=== PATIENT | male | born 1995 | race Caucasian/White ===

== ENCOUNTER 2016-12-29 11:20 | Emergency (ER) | payer OTHER ==
[~2016-12-29] VITALS: Ht 180.3 cm; Wt 95.3 kg
--- NOTE | 2016-12-29 13:37 | RADIOLOGY REPORT ---
EXAMINATION: XR HAND, LEFT CLINICAL INFORMATION: Laceration fourth finger COMPARISON: None TECHNIQUE: AP, lateral, and oblique views of the left hand. FINDINGS: There is a nondisplaced tuft fracture of the left fourth distal phalanx. Soft tissue swelling noted. No radiopaque foreign body is seen. There is a soft tissue laceration identified. IMPRESSION: Nondisplaced comminuted distal tuft fracture left fourth finger.
[2016-12-29] MEDS ORDERED: AUGMENTIN 875-1 EACH PO (14:13)
--- NOTE | 2016-12-29 14:13 | ED HAND/WRIST INJURY COMPLAINT ---
History of Present Illness General Chief Complaint: Hand or Wrist Injury Stated Complaint: RT FINGER INJURY Source: patient Exam Limitations: no limitations Vital Signs & Intake/Output Vital Signs & Intake/Output Vital Signs Date Time Temp Pulse Resp B/P B/P Pulse O2 O2 Flow FiO2 Mean Ox Delivery Rate 12/29 1427 97.9 60 18 122/78 98 Room Air 12/29 1317 97.4 66 20 138/80 99 12/29 1221 Room Air 12/29 1132 98.0 84 18 142/87 100 Room Air Allergies Coded Allergies: NO KNOWN ALLERGIES (11/29/11) Reconcile Medications Amoxicillin/Potassium Clav (Augmentin 875-125 Tablet) 875 MG-125 MG TABLET 1 TAB PO BID ppx Triage Note: PT TO ED FOR LAC TO RING FINGER ON L HAND. LAST TETANUS SHOT UNKNOWN. BLEEDING CONTROLLED IN TRIAGE. Triage Nurses Notes Reviewed? yes HPI: 21M NO MEDICAL HISTORY, WHILE AT WORK DROPPED A CINDER BLOCK ONTO HIS LEFT FOURTH FINGER WITH LACERATION AND PAIN. NO NUMBNESS, NOT ACTIVELY BLEEDING AT THIS TIME. (YARIEL BURDEN MD) Past History Travel History Traveled to [place] past 21 day No Medical History Any Pertinent Medical History? see below for history Neurological: NONE EENT: NONE Cardiovascular: NONE Respiratory: NONE Gastrointestinal: NONE Hepatic: NONE Renal: NONE Musculoskeletal: NONE Psychiatric: NONE Endocrine: NONE Blood Disorders: NONE Cancer(s): NONE Tetanus Vaccine: 12/29/16 Surgical History Surgical History: non-contributory Psychosocial History What is your primary language [place] Island[place] Tobacco Use: Never used ETOH Use: denies use Illicit Drug Use: denies illicit drug use Family History Hx Contributory? No (YARIEL BURDEN MD) Review of Systems Review of Systems Constitutional: Reports: no symptoms. EENTM: Reports: no symptoms. Respiratory: Reports: no symptoms. Cardiovascular: Reports: no symptoms. GI: Reports: no symptoms. Genitourinary: Reports: no symptoms. Musculoskeletal: Reports: see HPI. Skin: Reports: see HPI. Neurological/Psychological: Reports: no symptoms. Hematologic/Endocrine: Reports: no symptoms. Immunologic/Allergic: Reports: no symptoms. All Other Systems: Reviewed and Negative (YARIEL BURDEN MD) Physical Exam Physical Exam General Appearance: well developed/nourished, no apparent distress, alert Head: atraumatic, normal appearance Ears, Nose, Throat: normal ENT inspection Neck: normal inspection Cardiovascular/Respiratory: normal breath sounds, normal peripheral pulses, no respiratory distress Back: normal range of motion Wrist Left: normal range of motion, normal inspection Hand Left: lacerations, swelling, 4th finger Hand Right: normal inspection, normal range of motion Neurologic/Tendon: normal sensation, normal motor functions, normal tendon functions, responds to pain, no evidence tendon injury, no pulse deficit (YARIEL BURDEN MD) Progress Differential Diagnosis: contusion, dislocation, fracture Plan of Care: DISTAL TUFT FRACTURE OF 4TH FINGER. LACERATION CLEANED AND SUTURED, SPLINT PLACED. RADIOLOGICAL FINDINGS DISCUSSED WITH PATIENT. DISCHARGE HOME WITH AUGMENTIN AND FOLLOW UP FOR SUTURE REMOVAL. Diagnostic Imaging: Viewed by Me: Radiology Read. Discussed w/RAD: Radiology Read. Radiology Impression: PATIENT: MARCOS WILCOX PRESENT AGE: 21 PATIENT ACCOUNT NO: [id number] : 93 LOCATION: [facility] ORDERING PHYSICIAN: YARIEL BURDEN MD SERVICE DATE: 12/29/16 EXAM TYPE : RAD - XRY-HAND, LEFT EXAMINATION: XR HAND, LEFT CLINICAL INFORMATION: Laceration fourth finger COMPARISON: None TECHNIQUE: AP, lateral, and oblique views of the left hand. FINDINGS: There is a nondisplaced tuft fracture of the left fourth distal phalanx. Soft tissue swelling noted. No radiopaque foreign body is seen. There is a soft tissue laceration identified. IMPRESSION: Nondisplaced comminuted distal tuft fracture left fourth finger. DICTATED BY: HETAL LITTLE MD DATE/TIME DICTATED:12/29/161331 [employer]:VASILIY DATE/TIME TRANSCRIBED:12/29/161331 CONFIDENTIAL, DO NOT COPY WITHOUT APPROPRIATE AUTHORIZATION. <Electronically signed in Other Vendor System> SIGNED BY: HETAL LITTLE MD 12/29/168 (YARIEL BURDEN MD) Plan of Care: laceration sutured by aspen streeter-. Discussed the patient possibly for by not taking examination still exist return to ER with any concerns or signs of infection. (RACHELLE ARREAGA) Departure Departure Condition: Stable Referrals: PATIENT HAS NO PRIMARY CARE DR (PCP/Family) Departure Forms: Customer Survey General Discharge Information (YARIEL BURDEN MD) Departure Disposition: HOME OR SELF CARE Clinical Impression Primary Impression: Finger laceration Additional Instructions: return in 7-10 days for suture removal. keep finger clean and covered. splint at all times, augmentin as directed. the possiblity of a foreign body not seen on xray or examination exists. return to the ER with any concerns or signs of infection: redness, warmth, swelling, dsicahrge, fever or chills Prescriptions: Current Visit Scripts Amoxicillin/Potassium Clav (Augmentin 875-125 Tablet) 1 TAB PO BID #14 TAB (RACHELLE ARREAGA) PA/FINANCIAL RECRUITER Co-Sign Statement Statement: ED Attending supervision documentation- I saw and evaluated the patient. I have also reviewed all the pertinent lab results and diagnostic results. I agree with the findings and the plan of care as documented in the PA's/FINANCIAL RECRUITER's documentation. x I have reviewed the ED Record and agree with the PA's/FINANCIAL RECRUITER's documentation. [] Additions or exceptions (if any) to the PAs/FINANCIAL RECRUITER's note and plan are summarized below: [] (JOSH NAIR,PAPI) Procedures Laceration/Wound Repair Laceration/Wound Repair: Wound Location: upper extremity Wound's Depth, Shape: linear, superficial Wound Length (cm): 2 Wound Explored: clean, irrigated extensively Irrigated w/ Saline (ccs): 200 Betadine Prep? Yes Anesthesia: digit block Volume Anesthetic (ccs): 6 Wound Repaired With: sutures Suture Size/Type: 3:0 Layer Closure? No Sterile Dressing Applied: Yes Splint Applied? Yes Date of Last Tetanus: 12/29/16 (RACHELLE ARREAGA)
[2016-12-29 14:27] VITALS: BP 122/78
== END 2016-12-29 14:30 ==
LOC: ERH 11:20
DX: S62.665A Nondisplaced fracture of distal phalanx of left ring finger, initial encounter for closed fracture (principal); S61.215A Laceration without foreign body of left ring finger without damage to nail, initial encounter; W23.0XXA Caught, crushed, jammed, or pinched between moving objects, initial encounter; Y93.89 Activity, other specified; Y92.9 Unspecified place or not applicable
CPT/HCPCS: 73130-LT; 90471; 90714

== ENCOUNTER 2017-01-05 12:49 | Emergency (ER) | payer OTHER ==
[~2017-01-05] VITALS: Ht 180.3 cm; Wt 95.3 kg
[~2017-01-05 12:49] MED LIST: AUGMENTIN 875-1 EACH PO
--- NOTE | 2017-01-05 12:51 | ED ANIMAL BITE/WOUND CHECK ---
History of Present Illness General Chief Complaint: Suture Removal/Wound Recheck Stated Complaint: SUTURE REMOVAL Source: patient, old records Exam Limitations: no limitations Vital Signs & Intake/Output Vital Signs & Intake/Output Vital Signs Date Time Temp Pulse Resp B/P B/P Pulse O2 O2 Flow FiO2 Mean Ox Delivery Rate 01/05 1252 97.4 98 18 138/85 98 Room Air Allergies Coded Allergies: NO KNOWN ALLERGIES (11/29/11) Reconcile Medications Amoxicillin/Potassium Clav (Augmentin 875-125 Tablet) 875 MG-125 MG TABLET 1 TAB PO BID ppx Triage Nurses Notes Reviewed? yes Onset: Abrupt Duration: week(s): (1), better Timing: remote history Injury Environment: home Is Injury an Animal Bite? No Severity: mild Severity Numbers: 1 No Modifying Factors: none Associated Symptoms: DENIES HPI: 21-year-old male presents for evaluation suture removal status post sustaining laceration one week ago. Requiring 6 sutures, he is without complaints he denies any redness warmth or pain to the finger he has been using the splint as well as directed for his tuft fracture. He denies any discharge numbness tingling or difficulty with range of motion of the finger. No new injury (RACHELLE ARREAGA) Past History Travel History Traveled to [place] past 21 day No Medical History Any Pertinent Medical History? see below for history Neurological: NONE EENT: NONE Cardiovascular: NONE Respiratory: NONE Gastrointestinal: NONE Hepatic: NONE Renal: NONE Musculoskeletal: NONE Psychiatric: NONE Endocrine: NONE Blood Disorders: NONE Cancer(s): NONE Tetanus Vaccine: 12/29/16 Surgical History Surgical History: non-contributory Psychosocial History What is your primary language [place]i Family History Hx Contributory? No (RACHELLE ARREAGA) Review of Systems Review of Systems Constitutional: Reports: see HPI. All Other Systems: Reviewed and Negative Comments Review of systems: See HPI, All other systems negative. Constitutional, no chills no fever, no malaise HEENT: No visual changes no sore throat no congestion, Cardiovascular: No chest pain , no palpitation Skin: no rashes, no change in skin Respiratory: No dyspnea no cough no sputum GI: No nausea no vomiting, Muscle skeletal: No joint pain, no joint swelling, no back pain, no neck pain, Neurologic: No numbness , no headache Psych: No stres Heme/endocrine: No bruising Immunology: No lymphadenopathy (RACHELLE ARREAGA) Physical Exam Physical Exam General Appearance: well developed/nourished, no apparent distress, alert, awake Comments: Well-developed well-nourished patient in no apparent distress. HEENT: Atraumatic, extraocular motion intact Neck: Supple, FROM Back: FROM Cardiovascular: Regular rate and rhythms no murmurs rubs or gallops, Respiratory: Chest nontender.There were no bony deformities, no asymmetry. No respiratory distress. Patient speaking in full complete sentences. Breath sounds clear to auscultation bilaterally: NO W/R/R Extremities: [address] to the distal left fourth finger, there is no surrounding induration fluctuance or erythema there is a subungual hematoma noted to the fourth finger, the finger is nontender, no swelling full range of motion Neuro: awake, alert, and oriented to person, place and time. There were no obvious focal neurologic abnormalities. Skin: Warm & dry;No appreciable rash on exposed skin Psych: Mood affect normal, normal memory normal judgment. (RACHELLE ARREAGA) Progress Differential Diagnosis: abscess, cellulitis, joint infection, tenosysnovitis Plan of Care: SUTURES X 6 REMOVED BY ME, NO WOUND DEHISCENCE. PT TOLERATED WELL. D/W PLAN OF CARE, RETURN WITH ANY CONCERNS. HE FEELS COMFORTABLE WITH PLAN (RACHELLE ARREAGA) Departure Departure Time of Disposition: 1258 Disposition: HOME OR SELF CARE Condition: Stable Clinical Impression Primary Impression: Visit for suture removal Secondary Impressions: Subungual hematoma Referrals: PATIENT HAS NO PRIMARY CARE DR (PCP/Family) Additional Instructions: Continue to wear splint keep dressing applied as discussed. Return to ER or follow-up with her primary care physician with any concerns or signs of infection Departure Forms: Customer Survey General Discharge Information (RACHELLE ARREAGA) PA/X RAY INSPECTOR Co-Sign Statement Statement: ED Attending supervision documentation- [] I saw and evaluated the patient. I have also reviewed all the pertinent lab results and diagnostic results. I agree with the findings and the plan of care as documented in the PA's/X RAY INSPECTOR's documentation. [X] I have reviewed the ED Record and agree with the PA's/X RAY INSPECTOR's documentation. [] Additions or exceptions (if any) to the PAs/X RAY INSPECTOR's note and plan are summarized below: [] (WARD NAIR,PATIENCE Alexandra)
[2017-01-05 12:52] VITALS: BP 138/85
== END 2017-01-05 13:03 ==
LOC: ERH 12:49
DX: S61.219A Laceration without foreign body of unspecified finger without damage to nail, initial encounter (principal); X58.XXXA Exposure to other specified factors, initial encounter; Y92.9 Unspecified place or not applicable; Y93.9 Activity, unspecified
CPT/HCPCS: 99281

== ENCOUNTER 2017-10-09 23:06 | Inpatient (IN) | payer OTHER ==
[~2017-10-09] VITALS: Ht 175.3 cm; Wt 107.7 kg
[2017-10-09 23:34] LABS: ABSOLUTE BASOPHIL COUNT 0 /CUMM (0.0-0.2); ABSOLUTE EOSINOPHIL COUNT 0.1 /CUMM (0.0-0.7); ABSOLUTE GRANULOCYTE CT 14.5 /CUMM (1.4-6.5); ABSOLUTE LYMPH COUNT 2.6 /CUMM (1.2-3.4); ABSOLUTE MONOCYTE COUNT 1.3 /CUMM (0.10-0.60); BASOPHIL % 0.2 % (0.0-2.0); EOSINOPHIL % 0.5 % (0-5); GRANULOCYTE % 77.9 % (42.2-75.2); HEMATOCRIT 49.1 % (42-52); MEAN CORPUSCULAR HGB 30.2 PG (27.0-31.0); MEAN CORPUSCULAR HGB CONC 34.1 G/DL (33.0-37.0); MEAN CORPUSCULAR VOLUME 88.7 FL (80.0-94.0); MEAN PLATELET VOLUME 9.3 FL (7.4-10.4); PLATELET COUNT 380 /CUMM (130-400); RBC DISTRIBUTION WIDTH 12.9 % (11.5-14.5); RED BLOOD CELL CT 5.54 /CUMM (4.70-6.10); WHITE BLOOD CELL COUNT 18.6 /CUMM (4.8-10.8)
--- NOTE | 2017-10-09 23:40 | ED PSYCHIATRIC COMPLAINT ---
History of Present Illness General Chief Complaint: Psychiatric Related Complaint Stated Complaint: DEPRESSION +SI Source: patient, EMS, police Exam Limitations: no limitations Vital Signs & Intake/Output Vital Signs & Intake/Output Vital Signs Date Time Temp Pulse Resp B/P B/P Pulse O2 O2 Flow FiO2 Mean Ox Delivery Rate 10/10 1432 98.5 101 20 132/68 97 10/10 1103 98.3 81 20 136/70 98 10/10 0936 98.4 82 20 140/72 96 10/10 0642 96.2 83 16 144/98 98 Room Air 10/09 2338 96.0 62 20 129/79 97 Room Air ED Intake and Output 10/10 0000 10/09 1200 Intake Total Output Total Balance Patient 240 lb Weight Weight Reported by Patient Measurement Method Allergies Coded Allergies: NO KNOWN ALLERGIES (11/29/11) Triage Note: PT BIBA ON A PEER FROM HOME. PER POLICE PT HAD FIGHT WITH HIS FAMILY AND TOLD THEM HE WANTED TO END HIS LIFE, AND RAN AWAY SO FAMILY CALLED POLICE. PT +SI AT THIS TIME WITH NO PLAN, DENIES HI. Triage Nurses Notes Reviewed? yes Onset: Abrupt Duration: hour(s): (FEW) Timing: single episode today Severity: moderate, severe Associated Symptoms: suicidal ideation, DEPRESSED HPI: 22 year old male presents via EMS accompanied by police from home for suicide attempt. He states he tried to throw himself down the stairs and then went out in the cold in an attempt to kill himself via hypothermia. History of suicide attempt with extension cord 2 years ago that no one knows about. He lives at home with parents and their male room. Denies any difficulty at home or work. He does not want to talk about what is going on. Denies hallucinations or HI. He has never had psychiatric treatment before. Family history of depression in his mother. (Amanda NAIR,Ermelinda) Reconcile Medications No Known Home Medications (Samina NAIR,Prasanth Alexandra) Past History Travel History Traveled to [place] past 21 day No Medical History Any Pertinent Medical History? see below for history Neurological: NONE EENT: NONE Cardiovascular: NONE Respiratory: NONE Gastrointestinal: NONE Hepatic: NONE Renal: NONE Musculoskeletal: NONE Psychiatric: NONE Endocrine: NONE Blood Disorders: NONE Cancer(s): NONE Isolation History: Standard Tetanus Vaccine: 12/29/16 Surgical History Surgical History: non-contributory Psychosocial History What is your primary language Polish Tobacco Use: Never used ETOH Use: denies use Illicit Drug Use: denies illicit drug use Family History Hx Contributory? No (Ermelinda Patel MD) Review of Systems Review of Systems Constitutional: Denies: chills, fever. EENTM: Reports: no symptoms. Respiratory: Reports: no symptoms. Cardiovascular: Reports: no symptoms. GI: Reports: no symptoms. Genitourinary: Reports: no symptoms. Musculoskeletal: Reports: no symptoms. Skin: Reports: no symptoms. Neurological/Psychological: Reports: anxiety, depressed, emotional problems. Hematologic/Endocrine: Reports: no symptoms. Immunologic/Allergic: Reports: no symptoms. All Other Systems: Reviewed and Negative (Ermelinda Patel MD) Physical Exam Physical Exam General Appearance: well developed/nourished, alert, awake, mild distress Head: atraumatic Eyes: Bilateral: PERRL, EOMI. Ears, Nose, Throat: normal pharynx, normal ENT inspection, hearing grossly normal Neck: normal inspection, supple Respiratory: normal breath sounds Cardiovascular: regular rate/rhythm Gastrointestinal: soft, non-tender Extremities: normal range of motion Neurological/Psychiatric: awake, agitated, alert Appearance/Memory/Insight: neat Behavoir/Eye Contact/Speech: avoids eye contact, cooperative, decreased rate of speech Thoughts/Hallucinations: no apparent hallucination Skin: intact, normal color, warm/dry SAD PERSONS SAD PERSONS Response Value Male Sex? yes 1 Depression/Hopelessness? yes 2 Previous Attempts/Psych Care yes 1 Single//? yes 1 Organized/Serious Attempt yes 2 Social Support? has support 0 Stated Future Intent? yes 2 Total 9 SAD PERSONS Done? yes (Ermelinda Patel MD) Progress Differential Diagnosis: DEPRESSION, SUICIDAL IDEATION, SUICIDE ATTEMPT Plan of Care: Orders Procedure Date/time Status Regular Diet 10/10 B Active Continuous Observation Monitor 10/10 0700 Active Continuous Observation Monitor 10/09 2316 Active URINE DRUG SCREEN FOR ER ONLY 10/09 2316 Complete THYROID STIMULATING HORMONE 10/09 2316 Complete ETHANOL 10/09 2316 Complete COMPREHENSIVE METABOLIC PANEL 10/09 2316 Complete CBC WITHOUT DIFFERENTIAL 10/09 2316 Complete ED CRISIS PSYCH CONSULT 10/09 2316 Active Laboratory Tests 10/09/17 2345: Urine Opiates Screen < 100, Methadone Screen < 40, Barbiturate Screen < 60, Ur Phencyclidine Scrn < 6.00, Amphetamines Screen < 100, U Benzodiazepines Scrn < 85, Urine Cocaine Screen < 50, Urine Cannabis Screen < 5.00 10/09/17 2328: Anion Gap 20 H, Estimated GFR > 60, BUN/Creatinine Ratio 16.7, Glucose 108 H, Calcium 10.5 H, Total Bilirubin 0.8, AST 36, ALT 49, Alkaline Phosphatase 108, Total Protein 8.4 H, Albumin 5.1 H, Globulin 3.3, Albumin/Globulin Ratio 1.5, TSH 3.230, CBC w Diff NO MAN DIFF REQ, RBC 5.54, MCV 88.7, MCH 30.2, MCHC 34.1, RDW 12.9, MPV 9.3, Gran % 77.9 H, Lymphocytes % 14.2 L, Monocytes % 7.2, Eosinophils % 0.5, Basophils % 0.2, Absolute Granulocytes 14.5 H, Absolute Lymphocytes 2.6, Absolute Monocytes 1.3 H, Absolute Eosinophils 0.1, Absolute Basophils 0, Serum Alcohol < 10.0 Hand-Off Endorsed To: Prasanth Haas MD Endorsed Time: 0700 Pending: consult (CRISIS) (Ermelinda Patel MD) Departure Departure Disposition: STILL A PATIENT Condition: Stable Clinical Impression Primary Impression: Depression Secondary Impressions: Suicide attempt Referrals: Vanesa Walker APRN (PCP/Family) Departure Forms: Customer Survey General Discharge Information (Ermelinda Patel MD) Departure Prescriptions: Current Visit Scripts No Known Home Medications Psych Admission Note Psychiatric Admission: I have seen and evaluated MARCOS WILCOX. I have also reviewed all the pertinent lab results and diagnostic results. MARCOS WILCOX will be admitted to our inpatient Psychiatric unit for treatment and care. (Prasanth Haas MD)
--- NOTE | 2017-10-10 09:30 | ED PSYCH CRISIS CONSULTATION ---
Crisis Consult Basic Assessment Date of Consult: 10/10/17 Responsible Person/Accompanied By: PEER Insurance Authorization: Insurance #1: Insurance name: RONNIE PORTILLO Phone number: Policy number: [id number] Group number: Authorization number: ED Provider: Patient's ED Provider: Ermelinda Patel MD Primary Care Physician: Patient's PCP: Vanesa Walker APRN PCP's Chief Complaint: Psychiatric Related Complaint Patient's Quote: "I had a mental break down." Present Illness: Pt is 22 yo male BIBA on PEER for suicide attempt. His UTOX and BAL are negative for substances. Pe pt report, he tried to throw himself down the stairs and then went out in the cold in an attempt to kill himself via hypothermia. He admitts to one prior suicide attempt with extension cord 2 years ago that no one knows about and it did not require hospitalization. " I can't even kill myself right." He lives at home with parents and their male roomate. He denies HI/AH/VH and paranoia at present. Denies any difficulty at home or work. He does not want to be admitted to the hospital because he wishes to be discharged so he " can end it all." Pt denies having a plan. He is tearful, flat affect, poor insight/judgement and depressed 10/10. NO hx of hallucinations or HI. He has never had psychiatric treatment before. Family history of depression on maternal side. 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 Pt said " we will see how it goes." Pt is calm and cooperative through out eval. Pt has no hx of substance abuse. No legal issues/arrests. Pt is not on psychiatric medications and has no hx of past psych meds. Pt can only identify work stress and unable to get into the as his triggers. Pt denies access to guns at home. Pt completed 1 yr of college. 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 His brother and 1 sister are both incarcerated at this time for substance abuse charges. There is family hx of substance abuse - ETOH/ cocaine/ heroin/ cannabis. His parents both have hx of substance abuse but nothing current. Per collateral with mom: Pt stays in his room locked, playing video games all day. She said yesteday he had a job opportunity but refused to go as he stayed up all night playing games. When mom said this needs to stop , pt became out of control crying, screaming, flew out of his room and down the stairs- he was laying on the floor crying and screaming asking why no one loves him or pretends to love him. Pt has no friends, hx of bullying at school and most recently was denied getting into the for his anxiety. Mom also said he struggles with ADL's as he stays in his room all day and doesn't eat with the family. She said," he will take his food into his room and lock the door." Mom said he has had break downs before in 2010 but not like this one - she feels he is a risk to him self at this time. Mom said she tried to engage him in Care but he refused. No hx of formal tx or hospitalizations. In reference to C-SSRS- and risk factors include actual suicide attempt, previous suicide attempt 2 years ago, wishes to be , major depressive episode , feelings of hoplesness, helplessness, highly impulsive behavior, refuses to agree to safety plan and protective factos include living wiht family. Case consulted with Dr Christopher and pt meets criteria for psychiatric admission on [facility]. Pt will be admitted to [facility]. Patient's Address: [address] [place] [address] Other Phone Number: Who Do You Live With? Family Family/Informants Interviewed: [place] [phone] Allergies - Coded Allergies: NO KNOWN ALLERGIES (11/29/11) Current Medications - Scheduled Medications Amoxicillin/Potassium Clav (Augmentin 875-125 Tablet) 875 MG-125 MG TABLET 1 TAB PO BID ppx #14 TAB Prescribed by Vu Petersen on 12/29/16 Laboratory Results: Laboratory Tests 10/09/17 2345: Urine Opiates Screen < 100, Methadone Screen < 40, Barbiturate Screen < 60, Ur Phencyclidine Scrn < 6.00, Amphetamines Screen < 100, U Benzodiazepines Scrn < 85, Urine Cocaine Screen < 50, Urine Cannabis Screen < 5.00 03/14/18 2328: Anion Gap 20 H, Estimated GFR > 60, BUN/Creatinine Ratio 16.7, Glucose 108 H, Calcium 10.5 H, Total Bilirubin 0.8, AST 36, ALT 49, Alkaline Phosphatase 108, Total Protein 8.4 H, Albumin 5.1 H, Globulin 3.3, Albumin/Globulin Ratio 1.5, TSH 3.230, CBC w Diff NO MAN DIFF REQ, RBC 5.54, MCV 88.7, MCH 30.2, MCHC 34.1, RDW 12.9, MPV 9.3, Gran % 77.9 H, Lymphocytes % 14.2 L, Monocytes % 7.2, Eosinophils % 0.5, Basophils % 0.2, Absolute Granulocytes 14.5 H, Absolute Lymphocytes 2.6, Absolute Monocytes 1.3 H, Absolute Eosinophils 0.1, Absolute Basophils 0, Serum Alcohol < 10.0 Past History Past Medical History Neurological: NONE EENT: NONE Cardiovascular: NONE Respiratory: NONE Gastrointestinal: NONE Hepatic: NONE Renal: NONE Musculoskeletal: NONE Psychiatric: NONE Endocrine: NONE Blood Disorders: NONE Cancer(s): NONE Past Surgical History Surgical History: non-contributory Psychosocial History Strengths/Capabilities: pt wants to get a job Physical Limitations (Interventions): none Psychiatric Treatment History Psych Treatment Psychiatric Treatment Yes Inpatient Treatment No Outpatient Treatment Yes Location of Treatment [facility] Reason for Treatment Depression /SI GH E.D referrral in 2010 Dates of Treatment 2010- pt did not follow through on recommendations Response to Treatment poor Diagnosis by History: depression and anxiety Substance Use/Abuse History Drug Use/Abuse Substances Used/Abused No Substance Abuse Treatment Substance Abuse Treatment Past Substance Abuse [place] No Current Mental Status Mental Status Orientation: Person, Place, Situation Affect: Anxious, Depressed, Flat, Hopeless, Lonely, Sad Speech: WNL Neuro-vegetative: Anhedonia, Energy Decreased, Helpless, Loss of Interest Appearance Appearance- Dress/Hygiene: Pt is dressed in blue hospital scrubs, wearing glasses, hygiene is malodorous Behaviors Thought Process: WNL Thought Content: WNL Memory: WNL Insight: Poor SI/HI Risk Assessment Past Suicidal Ideation/Attempts Yes Current Suicidal Ideation/Att Yes Past Homicidal Ideation/Att: No Current Homicidal Ideation/Attempts No Degree of Intent: States Intent Danger To: Self Gravely Disabled: Lack of Insight, Poor Impulse Control, Poor Judgment Risk Factors: high anxiety/distress, history of suicide atmpts, isolate/no social support, poor impulse control, lives alone, male Lethality Ratin (most severe) PTSD Checklist PTSD Done? pt unable to participate ED Management Sitter: Yes Restraints: No DSM5/PS Stressors/Medical Prob Diagnosis' (DSM 5, Stressors, Medical): F32.9 Major depression, single episode, severe unspecified medical: denies psychosocial:family, employment, school , isolated Current GAF: 20 Departure Disposition Psych Medical Clearance Date: 10/10/17 Medically Cleared at: 0840 Time Started: 0840 Time Ended: 1020 Psychiatrist Consulted: Jarad Diaz MD Date Disposition Established: 10/10/17 Time Disposition Established: 1019 Plan for Disposition - Modality: Inpatient Psychiatry Facility: [facility] Rationale for Disposition: Pt endorses positive SI- no plan but stated " I wish to leave the hospital to end it all." Pt presents with poor insight/judgement/impulse control/ hopeless, helpless and is a risk to self at this time. Case consulted with Dr Christopher and pt meets criteria for psychiatric admission on [facility]. Type of IP Admission: [facility] Referrals Vanesa Walker APRN (PCP/Family)
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
--- NOTE | 2017-10-10 13:44 | IP CRISIS DIAG ASSESS PSYCH ---
Diagnostic Assessment Basic Assessment Insurance Authorization: Insurance #1: Insurance name: RONNIE PORTILLO Phone number: Policy number: [id number] Group number: Authorization number: Member Name Member ID Member Subscriber Name Subscriber ID MARCOS WILCOX II [id number] MARCOS WILCOX II [id number] Pended Authorization # Client Authorization # Type of Request [id number] INITIAL Primary Care Physician: Patient's PCP: Vanesa Walker APRN PCP's Patient's Quote: "I had a mental break down." Present Illness: Pt is 22 yo male BIBA on PEER for suicide attempt. His UTOX and BAL are negative for substances. Pe pt report, he tried to throw himself down the stairs and then went out in the cold in an attempt to kill himself via hypothermia. He admitts to one prior suicide attempt with extension cord 2 years ago that no one knows about and it did not require hospitalization. " I can't even kill myself right." He lives at home with parents and their male roomate. He denies HI/AH/VH and paranoia at present. Denies any difficulty at home or work. He does not want to be admitted to the hospital because he wishes to be discharged so he " can end it all." Pt denies having a plan. He is tearful, flat affect, poor insight/judgement and depressed 10/10. NO hx of hallucinations or HI. He has never had psychiatric treatment before. Family history of depression on maternal side. certified ophthalmic surgical assistant discussed with pt the policy and procedures for involuntary admission to the hospital as he is actively suicidal. Pt said " we will see how it goes." Pt is calm and cooperative through out eval. Pt has no hx of substance abuse. No legal issues/arrests. Pt is not on psychiatric medications and has no hx of past psych meds. Pt can only identify work stress and unable to get into the as his triggers. Pt denies access to guns at home. Pt completed 1 yr of college. 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 His brother and 1 sister are both incarcerated at this time for substance abuse charges. There is family hx of substance abuse - ETOH/ cocaine/ heroin/ cannabis. His parents both have hx of substance abuse but nothing current. Per collateral with mom: Pt stays in his room locked, playing video games all day. She said yesteday he had a job opportunity but refused to go as he stayed up all night playing games. When mom said this needs to stop , pt became out of control crying, screaming, flew out of his room and down the stairs- he was laying on the floor crying and screaming asking why no one loves him or pretends to love him. Pt has no friends, hx of bullying at school and most recently was denied getting into the for his anxiety. Mom also said he struggles with ADL's as he stays in his room all day and doesn't eat with the family. She said," he will take his food into his room and lock the door." Mom said he has had break downs before in 2010 but not like this one - she feels he is a risk to him self at this time. Mom said she tried to engage him in Care but he refused. No hx of formal tx or hospitalizations. In reference to C-SSRS- and risk factors include actual suicide attempt, previous suicide attempt 2 years ago, wishes to be , major depressive episode , feelings of hoplesness, helplessness, highly impulsive behavior, refuses to agree to safety plan and protective factos include living wiht family. Case consulted with Dr Christopher and pt meets criteria for psychiatric admission on [facility]. Pt will be admitted to [facility]. Patient's [address]: [address] [place] [address] Other Phone Number: Who Do You Live With? Family Feel Safe Where You Live? Yes Marital Status: single Do You Have Children? No Primary Language? Russian Language(s) Spoken At Home: Russian Family/Informants Interviewed: Mercedez [phone] Allergies - Coded Allergies: NO KNOWN ALLERGIES (11/29/11) Current Medications - Scheduled Medications Amoxicillin/Potassium Clav (Augmentin 875-125 Tablet) 875 MG-125 MG TABLET 1 TAB PO BID ppx #14 TAB Prescribed by Vu Petersen on 12/29/16 Past History Past Surgical History Surgical History non-contributory Abuse/Trauma History Trauma History/Current Trauma: Denies Legal History Current Legal Status: none Have you ever been arrested? 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 no Psychosocial History Strengths/Capabilities: pt wants to get a job Physical Limitations (Interventions): none Psychiatric Treatment History Psych Treatment Psychiatric Treatment Yes Inpatient Treatment No Outpatient Treatment Yes Location of Treatment [facility] Reason for Treatment Depression /SI [facility] E.D referrral in 2010 Dates of Treatment 2010- pt did not follow through on recommendations Response to Treatment poor Diagnosis by History: depression and anxiety Risk Factors: high anxiety/distress, history of suicide atmpts, isolate/no social support, poor impulse control, lives alone, male Substance Use/Abuse History Drug Use/Abuse minimum 12mo Hx Substances Used/Abused No Substance Abuse Treatment Substance Abuse Treatment Past Substance Abuse [place] No Sexual History Sexually Active No # of partners 1 Sexual Orientation Heterosexual Use of Protection Yes Always Sexual Concerns: none stated Education History Highest Level of Education: some college Preferred Learning Style: visual, auditory, experiential Current Mental Status Mental Status Orientation: Person, Place, Situation Affect: Anxious, Depressed, Flat, Hopeless, Lonely, Sad Speech: WNL Neuro-vegetative: Anhedonia, Energy Decreased, Helpless, Loss of Interest Appearance Appearance- Dress/Hygiene: Pt is dressed in blue hospital scrubs, wearing glasses, hygiene is malodorous Behaviors Thought Process: WNL Thought Content: WNL Memory: WNL Insight: Poor SI/HI Risk Assessment - Minimum 6mo History- Past Suicidal Ideation/Attempts Yes Current Suicidal Ideation/Att Yes Past Homicidal Ideation/Att: No Current Homicidal Ideation/Attempts No Degree of Intent: States Intent Danger To: Self Gravely Disabled: Lack of Insight, Poor Impulse Control, Poor Judgment Risk Factors: high anxiety/distress, history of suicide atmpts, isolate/no social support, poor impulse control, lives alone, male Lethality Ratin (most severe) Needs/Init TX Plan/Goals: Mood stabilization and safety , group and individual therapy, psychoeducation, medication consultation, family meeting and copings skills. AUDIT-C Questionnaire: AUDIT-C Questionnaire: Response Value ETOH use in the past year Never 0 # drinks typical/day Doesn't Drink 0 6 or > drinks per occasion Never 0 Total 0 DSM5/PS Stressors/Medical Prob Diagnosis' (DSM 5, Stressors, Medical): F32.9 Major depression, single episode, severe unspecified medical: denies psychosocial:family, employment, school , isolated Current GAF: 20
[2017-10-10 20:59] VITALS: BP 137/69
--- NOTE | 2017-10-10 22:24 | History & Physical ---
General Information and HPI MD Statement: I have seen and personally examined MARCOS WILCOX and documented this H&P. The patient is a 22 year old M who presented with a patient stated chief complaint of [ medical evaluation ]. Source of Information: patient Exam Limitations: no limitations History of Present Illness: 22 Y O M came to Er through EMS accompanied by police from home for suicide attempt. He wanted to kills himself by hypothermia. History of suicide attempt with extension cord 2 years ago that no one knows about. Patient is not very talkative, he answers in "Yes" and "no" to specific questions, does not provide any further information by himself. He currently feeling of suicidal. Denies hallucinations or HI. Complete 14 point ROS unremarkable. Denied smoking, alcohol use or illicit drug use. Allergies/Medications Allergies: Coded Allergies: NO KNOWN ALLERGIES (11/29/11) Home Med list No Known Home Medications Compliance With Home Meds: UNKNOWN Past History Travel History Traveled to [place] past 21 day No Medical History Neurological: NONE EENT: NONE Cardiovascular: NONE Respiratory: NONE Gastrointestinal: NONE Hepatic: NONE Renal: NONE Musculoskeletal: NONE Psychiatric: NONE Endocrine: NONE Blood Disorders: NONE Cancer(s): NONE History of MRSA: No History of VRE: No History of CDIFF: No Isolation History: Standard Tetanus Vaccine: 12/29/16 Surgical History Surgical History: non-contributory Past Family/Social History Family History Relations & Conditions if any Relation not specified for: *No pertinent family history Psychosocial History Where do you live? Home Services at Home: None Smoking Status: Never Smoked ETOH Use: denies use Illicit Drug Use: denies illicit drug use Functional Ability ADLs Independent: dressing, eating, toileting, bathing. Ambulation: independent IADLs Independent: shopping, housework, finances, food prep, telephone, transportation , medication admin. 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 Denies: chills, diaphoresis, fever, malaise, weakness, unexplained weight loss. EENTM: Denies: blurred vision, double vision, visual changes, eye pain, eye drainage, eye tearing, icterus, ear discharge, ear pain, ear redness, hearing changes, nasal congestion, epistaxis, nasal pain, throat pain, throat swelling, mouth pain, tooth pain. Cardiovascular: Denies: chest pain, edema, orthopena, palpitations, peripheral edema, syncope. Respiratory: Denies: cough, hemoptysis, orthopnea, short of breath, sputum production, stridor, wheezing. GI: Denies: abdominal pain, bloating, constipation, diarrhea, distention, bowel incontinence, melena, nausea, bloody stool, changes in stool, vomiting, steatorrhea. Genitourinary: Denies: discharge, dysuria, frequency, hematuria, hesitation, nocturia, pain, urgency. Musculoskeletal: Denies: back pain, gout, joint pain, joint swelling, muscle pain, muscle stiffness, neck pain. Skin: Denies: cysts, change in skin color, change in hair/nails, dryness, erythema, jaundice, lesions, lymphangitis, lumps, moles, rash. Neurological/Psychological: Denies: ataxia, cognitive dysfunction, confusion, dementia, headache, numbness, paresthesia, pre-existing deficit, petit mal seizures. Hematologic/Endocrine: Denies: bruising, bleeding, polyuria. Exam & Diagnostic Data Last 24 Hrs of Vital Signs/I&O Vital Signs Date Time Temp Pulse Resp B/P B/P Pulse O2 O2 Flow FiO2 Mean Ox Delivery Rate 10/10 2058 97.8 61 137/69 10/10 2030 98.6 65 20 133/60 98 Room Air 10/10 1827 98.7 86 18 117/70 97 Room Air 10/10 1432 98.5 101 20 132/68 97 10/10 1103 98.3 81 20 136/70 98 10/10 0936 98.4 82 20 140/72 96 10/10 0642 96.2 83 16 144/98 98 Room Air 10/09 2338 96.0 62 20 129/79 97 Room Air Intake & Output 10/10 0000 10/10 0800 10/10 1600 Intake Total Output Total Balance Patient 108.862 kg Weight Weight Reported by Patient Measurement Method Physical Exam General Appearance Alert, Oriented X3, Cooperative, No Acute Distress Skin No Rashes, No Breakdown, No Significant Lesion HEENT Atraumatic, PERRLA, EOMI Neck Supple, No JVD, No thryomegaly, +2 Carotid Pulse wo Bruit Lymphatic Cervical nl Cardiovascular Regular Rate, Normal S1, Normal S2, No Murmurs Lungs Clear to Auscultation, Normal Air Movement Abdomen Normal Bowel Sounds, Soft, No Tenderness, No Hepatospenomegaly Neurological Exam Findings: Normal Gait, Normal Speech, Strength at 5/5 X4 Ext, Normal Tone, Sensation Intact, Cranial Nerves 3-12 NL, Reflexes 2+ Cranial Nerves II through XII: 3 to 12 intact Extremities No Clubbing, No Cyanosis, No Edema, Normal Pulses Vascular Normal Pulses, Pulses Symmetrical Last 24 Hrs of Labs/Mikel: Laboratory Tests 10/09/17 2345: Urine Opiates Screen < 100, Methadone Screen < 40, Barbiturate Screen < 60, Ur Phencyclidine Scrn < 6.00, Amphetamines Screen < 100, U Benzodiazepines Scrn < 85, Urine Cocaine Screen < 50, Urine Cannabis Screen < 5.00 10/09/17 2328: Anion Gap 20 H, Estimated GFR > 60, BUN/Creatinine Ratio 16.7, Glucose 108 H, Calcium 10.5 H, Total Bilirubin 0.8, AST 36, ALT 49, Alkaline Phosphatase 108, Total Protein 8.4 H, Albumin 5.1 H, Globulin 3.3, Albumin/Globulin Ratio 1.5, TSH 3.230, CBC w Diff NO MAN DIFF REQ, RBC 5.54, MCV 88.7, MCH 30.2, MCHC 34.1, RDW 12.9, MPV 9.3, Gran % 77.9 H, Lymphocytes % 14.2 L, Monocytes % 7.2, Eosinophils % 0.5, Basophils % 0.2, Absolute Granulocytes 14.5 H, Absolute Lymphocytes 2.6, Absolute Monocytes 1.3 H, Absolute Eosinophils 0.1, Absolute Basophils 0, Serum Alcohol < 10.0 Diagnostic Data EKG Results reviewed : NSR Assessment/Plan Assessment: # Depression with SI : agree with psychiatry plan As Ranked By This Provider Problem List: 1. Depression 2. Suicide attempt Miscellaneous Miscellaneous Documentation Attending Case Discussed With: Jarad Diaz MD Primary Care Physician: Vanesa Walker APRN Patient sees these Specialists unknown Level of Patient Care: JADEN Levine Attending Review Statement Attending Statement Attending MD Statement: I personally interviewed patient and noted H and P
[2017-10-11 07:38] VITALS: BP 145/66
[2017-10-11 11:55] VITALS: BP 140/70
[2017-10-11 15:53] VITALS: BP 148/70
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
[2017-10-11 19:47] VITALS: BP 143/90
[2017-10-12 07:39] VITALS: BP 119/68
[2017-10-12 08:57] LABS: ABSOLUTE BASOPHIL COUNT 0 /CUMM (0.0-0.2); ABSOLUTE EOSINOPHIL COUNT 0.2 /CUMM (0.0-0.7); ABSOLUTE GRANULOCYTE CT 4.9 /CUMM (1.4-6.5); ABSOLUTE LYMPH COUNT 2.6 /CUMM (1.2-3.4); ABSOLUTE MONOCYTE COUNT 0.8 /CUMM (0.10-0.60); BASOPHIL % 0.5 % (0.0-2.0); EOSINOPHIL % 2.4 % (0-5); GRANULOCYTE % 57.3 % (42.2-75.2); MEAN CORPUSCULAR HGB CONC 33.9 G/DL (33.0-37.0); MEAN CORPUSCULAR VOLUME 88.6 FL (80.0-94.0); MEAN PLATELET VOLUME 9.7 FL (7.4-10.4); PLATELET COUNT 315 /CUMM (130-400); RBC DISTRIBUTION WIDTH 12.8 % (11.5-14.5); RED BLOOD CELL CT 4.94 /CUMM (4.70-6.10)
[2017-10-12 11:07] LABS: HEMATOCRIT 43.7 % (42-52); WHITE BLOOD CELL COUNT 8.5 /CUMM (4.8-10.8)
[2017-10-12 12:07] VITALS: BP 134/67
--- NOTE | 2017-10-12 12:56 | CP SOUTH PROGRESS NOTE PSYCH ---
Psych (Inpt) Progress Note Progress Note Include the following elements, when applicable: Involvement in the active treatment of the patient with behavioral observations of the patient and the patient's response to the treatment. Review of the ongoing treatment process in the context of the treatment plan. Indication of how multi-disciplinary staff members are carrying out the treatment plan. Plans for future interventions and recommendations for revision of the treatment plan. Liaison with other physicians/providers. Progress Note: States that he has been doing great since he has been here, stated that he is getting a lot of perspective, helping others get through their issues, and getting help from staff around here. He is positive and feels uplifted since he has been admitted here. He stated that his mother came yesterday and they had a good meeting. His CBC has returned to normal and I explained this to him. He continues to decline medication and appears to minimize his suicide attempts as rare and not serious. Wants to know about discharge and I educated him about family meeting , discussing with the team on Saturday. Appreciative of help but looking forward to discharge. MSE: pleasant, well groomed young man, good eye contact. His speech is normal, his affect is full and reactive. He states his mood is good. His thought content is free of depression, SI or delusions. His thinking is coherent and goal directed. His insight is fair, though he is likely minimizing his sx. His judgment is fair. He has no AH or AH and is not internally preoccupied. A: 22 year old man w/ hx past suicide attempts, s/p throwing self down stairs after argument with mother. He denies any injuries and appears uplifted and positive about his future. he is likely minimizing his sx but does not in his mental status appear to have any concerning behaviors or abnormal thought processes. Risk factors are recent suicide attempts, minimizing sx likely and possible job loss, which he is not concerned about and stated he wanted to quit anyway. Plan: continue education, milieu therapy, groups. CBC is normal. Educated about relapse in depressive sx and potential for medication need in the future and he accepted it, but continues to decline med need. Agrees to therapy.
[2017-10-12 15:51] VITALS: BP 127/65
[2017-10-12 19:43] VITALS: BP 138/78
[2017-10-13 07:43] VITALS: BP 133/85
[2017-10-13 12:05] VITALS: BP 130/64
[2017-10-13 15:49] VITALS: BP 137/66
--- NOTE | 2017-10-13 16:06 | CP SOUTH PROGRESS NOTE PSYCH ---
Psych (Inpt) Progress Note Progress Note Include the following elements, when applicable: Involvement in the active treatment of the patient with behavioral observations of the patient and the patient's response to the treatment. Review of the ongoing treatment process in the context of the treatment plan. Indication of how multi-disciplinary staff members are carrying out the treatment plan. Plans for future interventions and recommendations for revision of the treatment plan. Liaison with other physicians/providers. Progress Note: Pleasant and polite, quieter than yesterday. He stated that his parents came to visit which was pleasant yesterday. He is bored here and stated there is not much to do but crosswords. He appears more subdued today, might be as he says due to boredom, states he normally keeps very busy. MSE: pleasant, well groomed young man, good eye contact. His speech is normal, his affect is more constricted today. He states his mood is good. His thinking is logical and goal oriented. His thought content does not have evidence of delusions or severe depression. No hallucinations. His insight is fair, he may be minimizing his sx. His judgment is fair. A: 22 year old man w/ hx past suicide attempts, s/p throwing self down stairs after argument with mother. Yesterday he was more uplifted and positive, today he is somewhat subdued. Despite this, still future oriented and does not appear to have gross neuroveg sx at this time. Risk factors are recent suicide attempts, potentially minimizing sx. Plan: continue education, milieu therapy, groups.
[2017-10-13 19:52] VITALS: BP 134/69
[2017-10-14 07:37] VITALS: BP 129/66
--- NOTE | 2017-10-14 08:50 | SOCIAL WORKER PROG NOTE PSYCH ---
Social Work Progress Note Progress Note Called Devante's Mother to see about a family meeting today. She said due to babysitting for her granddaughter she would prefer a phone conference. She's interested in knowing about his discharge plans. She feels he is having social anxiety issues. She isn't sure if returning home is the best thing for him, she states "I think things will just poultry picker where they left off." She said they visited with him over the weekend. Talked to Devante. He said he doesn't think his Mom wants to come in. Talked about scheduling something for tomorrow. He talked about having his parents here over the weekend and shared that he immediately just felt hopeless and upset in their presense. Stated that he didn't think anything was going to change. He doesn't really think that they care. He told them that he doesn't feel he gets the emotional support that he needs from them. He didn't feel that he got much of a response. Talked about how to get more support for him, due to him possibly not getting his emotional needs met through his parents. He seemed open to doing IOP at [place] and said he could walk there. Talked about what his safety plan would be for when he leaves. He had a hard time identifying things other than spending time with his 3 neices. He feels they make him happy. I'll probably give him a Safety Plan worksheet to work on while he is here. We talked about his anxiety and how he got through the phone anxiety he used to have. He said he used to call for home delivery driver because he would be forced to interact with the person on the phone and then the local delivery truck driver. He said this helped him get over it. We talked about other situations that may cause anxiety. He said he gets anxious around people that he considers more "successful" than himself. Asked what defined success? He said he gets intimidated around his friend, because he has a family and he doesn't have his own family. This led to a discussion about relationships. He hasn't been in a relationship with a significant other, because he seems to have pretty high expectations about what that should look like. His beliefs surround needing lots of money for expensive dates/ dinners and that it should be very romantic. I asked if he considered himself to be somewhat of a perfectionist? He said yes. I asked if he thought his beliefs about things may be causing him to not fullfill his goals? He seemed a bit unsure, but was considering it. Seems content about being here. Likes the ordiliness and structure of the unit. Called Devante's Mother. She will come in for a meeting tomorrow at 11:15am.
--- NOTE | 2017-10-14 12:04 | CP SOUTH PROGRESS NOTE PSYCH ---
Psych (Inpt) Progress Note Progress Note Vital Signs Date Time Temp Pulse B/P B/P Pulse O2 O2 Flow FiO2 10/14 0737 97.8 53 129/66 MSE: pleasant, polite, good eye contact. His speech is normal, his affect is more constricted today. He states his mood is "good"/does not believe that he is depressed His thinking is logical and goal oriented. His thought content does not have evidence of delusions or severe depression. No hallucinations. A: 22 year old man admitted after throwing self down stairs after argument with mother. First inpatient psychiatric admission Plan: He does not believe that psychiatric medications are warranted
[2017-10-14 12:07] VITALS: BP 138/64
[2017-10-14 16:01] VITALS: BP 143/66
--- NOTE | 2017-10-14 17:51 | SOCIAL WORKER PROG NOTE PSYCH ---
Social Work Progress Note Progress Note Completed [facility] online review 10/14 - check [facility] for next review date.
[2017-10-14 20:04] VITALS: BP 146/78
[2017-10-15 07:43] VITALS: BP 133/77
--- NOTE | 2017-10-15 10:28 | CP SOUTH PROGRESS NOTE PSYCH ---
Psych (Inpt) Progress Note Progress Note Vital Signs Date Time Temp Pulse Resp B/P B/P Pulse O2 O2 Flow FiO2 Mean Ox Delivery Rate 10/15 0643 97.6 55 133/77 10/15 2003 97.6 69 146/78 10/14 1601 72 143/66 10/14 1207 60 138/64 MSE: The patient seemed to be much different than yesterday; he may have been taking a nap soon after breakfast, he was awakened and arousable easily, but he seems to be having difficulty processing information, I gave him a few seconds to see if that was because he was awakened from a nap, however, he continued to see him either disinterested or down and withdrawn which is a big difference from his condition yesterday He did not want to talk about medications he does not want any medications, he claims that he is not feeling depressed or anxious His affect is more constricted today. It was difficult to paddock judge his thought process since he was not interested in any lengthy conversation (again this is much different than his condition yesterday) There was no concrete evidence of delusions He denied hallucinations. A: 22 year old man admitted after throwing self down stairs after argument with mother. First inpatient psychiatric admission Today he is giving a presentation that is very different from yesterday and he seemed to be odd compared to yesterday, however, it is difficult to pinpoint any particular thought disorder or delusion. The patient does not want any medications and does not feel that there is any depressive or anxiety symptoms. Having good the previous evaluations by the week and psychiatrist, I am starting to see what she refer too about the patient's presentation being odd and the fact that he is minimizing symptoms and might not be forthcoming about what is exactly going on Plan: He does not believe that psychiatric medications are warranted, he did not want to have a discussion about that He claims that he is comfortable with the idea of a doing intensive outpatient program (??)
--- NOTE | 2017-10-15 11:17 | SOCIAL WORKER PROG NOTE PSYCH ---
Social Work Progress Note Progress Note I was informed that Devante's Mother called the nurses station this morning and reported that he had cancelled the family meeting with her for today. I approached Devante who was in his room laying in bed and not in group. I asked him what was going on? He said he cancelled the meeting yesterday because he was just in an "emotional state." He had a difficult time identifying/ verbalizing what was going on. He said "I'm not ready." I asked what he didn't feel ready for? He couldn't tell me. He apologized for not being able to get out how he was feeling and what he was thinking about. He then stated he wanted to have the meeting today. I asked if he really felt up to that? He said he did. Ms. Jordan was called back to inform that the meeting is still on for today. Family meeting held with Devante and his Mother. Devante said he had gotten into a negative mood last night due to some of the negativity he was picking up on from peers on the unit last night. He said he thinks that was prompted him to cancel the meeting with his Mother. He said he often feels responsible for other peoples emotions issues and takes on the stress of that. Mom talked about the isolation at home and how he is constantly on his computer. She stated that the rules are going to change if he is going to live there and that he is not going to be on the computer all day. I asked how long he spends on the computer? He said that it can be the entire day. I told him that a compromise in that area sounded reasonable and that it wasn't healthy to spend all of his time infront of the computer. Asked if he had other interests he could involve himself in? He said he really didn't. Encouraged him to start thinking of some. Mom did report during the meeting that Jai (roommate) does use substances and drink. I asked if there was a foreseeable plan for him to leave? She said right now there was not, because he is a major contributor to their rent. She stated she is unemployed and Dad collects disability. She reported that her significant other and her are not and he is not Devante's biological Father, but he has been there for him most of his life. She reported that he suffers from mental health issues and is involved with Care. I asked if anyone is using substances in the house other than Jai? She said she thinks that Dad takes more Klonopin than what is prescribed. Devante also made a comment about her possibly doing the same thing. She denied this. She stated that there is alot of negative energy around the house and that they are a dysfunctional group, but they love Devante and only want to see him do well. She admitted that him working is important to their financial situation and that's why she doesn't want to see him quit his current job. She was open to the idea of him pursuing college. Devante was making alot of smirks and comments to himself througout the meeting. He made little eye contact with his Mother and wasn't open to her attempts to have physical contact. I did mention that asking Devante to come out of his room seemed good for him, but if the enviroment is not positive there really is no incentive. Talked about his goal of possibly moving to his own place when he was able to do so. He had little to say at the meeting and by the end, appeared to just emotionally shut down. Mom hasn't had any other safety concerns as he has not demonstrated this behavior consistently at home. We talked about his plan to follow up at [facility] and talked about how that is a good initial step in accepting tx. She is worried about what will be different when he returns home.
[2017-10-15 12:28] VITALS: BP 137/80
[2017-10-15 16:08] VITALS: BP 146/76
[2017-10-15 19:41] VITALS: BP 143/72
[2017-10-16 07:58] VITALS: BP 132/56
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
[2017-10-16 12:20] VITALS: BP 135/64
--- NOTE | 2017-10-16 13:30 | CP SOUTH PROGRESS NOTE PSYCH ---
Psych (Inpt) Progress Note Progress Note Vital Signs Date Time Temp Pulse B/P B/P Pulse O2 FiO2 10/16 1220 54 135/64 10/16 0758 97.0 56 132/56 MSE: The patient acknowledged that the meeting with his mother did not go well today, he did not seem to be having difficulty processing information, not interested in medications He said he was not feeling depressed or anxious His affect was constricted no definitive thought disorder no concrete evidence of delusions He denied hallucinations. He denied thinking of suicide, violence or homicide Assessment: The patient is a 22-year-old man admitted after throwing self down stairs after argument with mother. This is his first inpatient psychiatric admission Plan: He does not believe that psychiatric medications are warranted, he did not want to have a discussion about that He claims that he is comfortable with the idea of a doing intensive outpatient program
[2017-10-16 16:00] VITALS: BP 129/60
[2017-10-16 19:42] VITALS: BP 138/67
[2017-10-17 07:30] VITALS: BP 127/71
--- NOTE | 2017-10-17 09:04 | SOCIAL WORKER PROG NOTE PSYCH ---
Social Work Progress Note Progress Note Met with Devante this morning. He reported that he had a very "thought provoking" night and did some "soul searching" about his future. 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 He mentioned possibly trying the [place]. I mentioned that he has been hospitalized for a psychiatric reason and to think about that as it may come up again in the process. He said he would deal with it if that was the case. I asked what he was planning to do about his job? He said he does not plan to go back to work right now and he is going to focus on the goal of college or getting into the service. I told him that I thought it would be best if he told him Mother is plans prior to going home. I told him that I didn't want to see another incident happen similar to why he came in. He was agreeable. I told him we are looking at discharge for this week. He stated he was hoping to leave Saturday. I told him that we are assessing how he is doing day to day and reminded him that we are an acute unit addressing things like suicidality. He stated he was having suicidal thoughts when he saw his Mother the other day and that his family tends to evoke these thoughts. He said he really didn't seem to want to see his parents if they visit him tonight. I told him that he had the right to refuse visitors and if he doesn't want to see them he can tell nursing. I did say that this was concerning though, given he would be returning home and seeing them on a regular basis. Devante spoke with his Mother today. He informed me that he shared his plan with her and that she accepted it as long as he has another goal/ plan he is working on. He said he was aware that the doctor was thinking he should go today. He seemed upset. I told him that we should call his Mom to inform her that he is leaving. We called together. She stated that the family was out fixing a tire and that she can get him in an hour and a half. Devante stated he didn't want them picking him up and he'd walk home. Mom stated that he didn't have the keys to get in the house. He said he didn't care. I told his Mother that we would discharge him in an hour or so, so they may be home by the time he gets there. Informed Mom of his plan to go to IOP intake at 11:30am. She was concerned that he isn't talking to them, how he was going to be at home. I told her I didn't know and that hopefully things will work out. She asked about family sessions at [facility]. I told her if Devante was open to that. After I hung up with Devante's Mother I asked if he was going to be safe going home today? He said "yes." I asked what his plan was when he was returning home? He said "I don't know we'll see." His affect and behavior indicated that he was upset. I confronted him and he stated "we're done." I asked what he meant by that? He said "You guys are kicking me out." I told him I was sorry that he didn't want to go today and that he was being asked to leave today. I told him that if there is any reason he feels unsafe when he leaves or wants to hurt himself to please get to the ER. He seemed indifferent and unengaged in the conversation. At that point I expressed my concerns to the nursing team and Dr. Diaz. Radha Yanes LCSW came down to CPS to engage Devante in discussion about IOP. She reported the same concerns as he wouldn't speak with her much or engage. Dr. Diaz informed me later that Devante would be staying tonight due to his current presentation.
[2017-10-17 12:12] VITALS: BP 141/77
--- NOTE | 2017-10-17 15:38 | Patient Discharge Instructions ---
Psych Discharge Inst General Discharge Information Reason for Admission: Suicide attempt by throwing self down stairs and by staying out in the cold for 3 hours with intent of freezing to . Psy Discharge Primary Diag+ Unspecified depression Psy Discharge Secondary Diag+ Z63.9 problem related to primary support group Summary Tests/Major Procedures Lab ALT 49 U/L 10/09/17 2328 AST 36 U/L 10/09/17 2328 Albumin 5.1 g/dL H 10/09/17 2328 Anion Gap 20 H 10/09/17 2328 BUN 15 mg/dL 10/09/17 2328 Calcium 10.5 mg/dL H 10/09/17 2328 Carbon Dioxide 26 mmol/L 10/09/17 2328 Chloride 96 mmol/L L 10/09/17 2328 Cholesterol 192 MG/DL 10/09/17 2328 Cholesterol/HDL Ratio 3 % 10/09/178 Creatinine 0.9 mg/dL 10/09/178 Estimated GFR > 60 ml/min 10/09/17 2328 Glucose 108 mg/dL H 10/09/17 2328 HDL Cholesterol 75 mg/dL H 10/09/17 2328 Hemoglobin A1c 5.2 % 10/09/17 2328 LDL Cholesterol, Calc 100 mg/dL 10/09/17 2328 Potassium 4.0 mmol/L 10/09/17 2328 Sodium 142 mmol/L 10/09/17 2328 TSH 3.230 uIU/mL 10/09/17 2328 Total Protein 8.4 g/dL H 10/09/17 2328 Absolute Monocytes 0.8 /CUMM H 10/12/17 0603 Hct 43.7 % 10/12/17 0603 Hgb 14.8 G/DL 10/12/17 0603 Plt Count 315 /CUMM 10/12/17 0603 WBC 18.6 /CUMM H 10/09/17 2328 WBC 8.5 /CUMM 10/12/17 0603 EKG 10/10/17 was normal. Studies Pending at [facility]: None. Patient Instructions Contact Information Your Psychiatrist on [facility] was Carina NAIR,Mauricio * If you are experiencing an emergency related to this hospitalization, please call [phone] to contact the treating psychiatrist or the psychiatrist-on- call. * To Request a copy of your medical records, please contact the Medical Records Department at [phone]. * To request results of studies pending at the time of discharge, please call [phone]. * Continue your Medications until directed to stop by your Healthcare provider. General Medication Information Please continue to take your new medications and your continued home medications , unless otherwise indicated on your discharge medication list, or unless directed by your MD or CITY MAINTENANCE MANAGER to stop them. Special Instructions Diet Regular Activity Normal Other Inst/Recommendations Please see PCP about abnormal labs listed above. - Tobacco Use Treatment Offered Post DC Medications Offered: Not Applicable Post DC Tobacco Treatment Plan: Not Applicable - EtOH/Drug Use D/O Treatment Offered Post DC Medications Offered: NA-No EtOH/Drug Use D/O Post DC EtOH/SubAbuse [place] Plan: NA-No EtOH/Drug Use D/O Metabolic Screening ([x]) Not Applicable, patient not on a neuroleptic. OR () Patient on a neuroleptic(s) . Enter below results for Hemoglobin A1C, and lipid panel if obtained during the last 365 days. BMI: 35.000 Blood Pressure: 141/77 Laboratory Results From [facility] EHR (If applicable): Advance Directives Does the Patient have Medical Advance Directives No/Refused further info Does Pt have Psychiatric Advance Directives? No/Refused further info Does Patient have a Designated Surrogate Decision Maker: No Information About Psychiatric Advance Directives Provided? Refused Discharge Plan Post Hospital Treatment Plan: Returning to home and family. IOP 10/18/17 at 11:30 a.m.
[2017-10-17 16:02] VITALS: BP 137/58
--- NOTE | 2017-10-17 17:09 | CP SOUTH PROGRESS NOTE PSYCH ---
Psych (Inpt) Progress Note Progress Note Include the following elements, when applicable: Involvement in the active treatment of the patient with behavioral observations of the patient and the patient's response to the treatment. Review of the ongoing treatment process in the context of the treatment plan. Indication of how multi-disciplinary staff members are carrying out the treatment plan. Plans for future interventions and recommendations for revision of the treatment plan. Liaison with other physicians/providers. Progress Note: Dr. Whalen's and Dr. Lim's notes reviewed. Case and treatment plan discussed in team meeting. terminal worker reports that family meeting took place with mother a couple of days ago and it did not go well. We are looking into the possibility of another family meeting. Patient remains disinterested in taking any psychiatric medication. Patient seen at 1:50 PM. He was in group prior to meeting with me in office. Affect is calm and euthymic. States he thinks he has grown as a person and has met a lot of interesting and great people here. States he has found this to be an enriching experience. Reports situation with his family is still not very good. He relates his negative emotions to being around his parents. He finds them to be toxic. Reports he told his mother this morning not to visit. Reports mood is really good, actually. Rates sad mood and anxiety both 0/10. Denies feeling hopeless, helpless, worthless or guilty. Denies active and passive suicidal ideation. Reports last suicidal ideation occurred before family meeting on Saturday. Denies homicidal ideation. Denies homicidal ideation towards family members. Denies auditory and visual hallucinations and paranoid ideation. Reports sleep is okay. Reports appetite is good and energy is high. Does not want medication. Plans to quit his job. Still wants to join the , this time the [employer]. He identifies no other housing option except returning to parents' home. Agrees to attend [facility]. Patient met with Radha Yanes LCSW from [facility] to discuss the program. I reassessed the patient this afternoon. As described by other staff, the patient appears very shut-down. I asked him about his plans to attend [facility] tomorrow and he responded "we'll see." I asked him about his readiness for discharge and he wanted to know my opinion, refusing to give his. I asked him about safety for discharge and again he avoided the answer. I detect some gaminess/manipulation, as I do not believe that the patient wants to return to his family's home but he has not been able to identify an alternate living situation. While I do not believe that the patient is suicidal, I am concerned that he may make a gesture nonetheless. IMPRESSION: While I was planning to discharge the patient this afternoon, I have canceled today's discharge and we will reassess day by day for discharge-readiness. Continue present treatment plan.
[2017-10-17 19:54] VITALS: BP 147/68
[2017-10-18 07:34] VITALS: BP 147/66
--- NOTE | 2017-10-18 09:11 | SOCIAL WORKER PROG NOTE PSYCH ---
Social Work Progress Note Progress Note Devante's Mother called this morning. Reporting her concerns that Devante really isn' t speaking to her. I told her I was aware and that he wasn't really speaking with our staff either. I let her know that he has his intake at [facility] at 11:30am and I would be speaking with the team about his discharge. Devante was sitting in the lounge not in group at 9am. I asked him why he wasn't in group? He said "what's the point, I'm done here." I said "well that seems abrupt." He said "if you think so." Patient discussed in team meeting with plan to discharge to [facility] today. Devante was agreeable to meeting with me. Appeared guarded and would only answer questions with "I don't know", "we'll see", "I can't predict the future", "you tell me." I acknowledged that he was feeling upset about something and that this wasn't the Devante that I had seen over the last week. I told him that it was too bad that he was leaving angry. I told him if he would like to talk to me about anything I'm here, but I'm not playing along with his current presentation. I ended the conversation at that point. Devante left to go to [facility] at 11:30am. Called his Mother to let her know he left.
--- NOTE | 2017-10-18 12:10 | SOCIAL WORKER PROG NOTE PSYCH ---
Social Work Progress Note Faxed Referral(s) Referred To: [facility] Transition of Care Documents sent: Health Summary Faxed to: [facility] Fax #: [phone] Faxed by: Yeimi Prasad Date faxed: 10/18/17 Time Faxed: [phone]
--- NOTE | 2017-10-18 14:46 | CP SOUTH PROGRESS NOTE PSYCH ---
Psych (Inpt) Progress Note Progress Note Include the following elements, when applicable: Involvement in the active treatment of the patient with behavioral observations of the patient and the patient's response to the treatment. Review of the ongoing treatment process in the context of the treatment plan. Indication of how multi-disciplinary staff members are carrying out the treatment plan. Plans for future interventions and recommendations for revision of the treatment plan. Liaison with other physicians/providers. Progress Note: Case and treatment plan discussed in team meeting. Staff reports that this morning, the patient was sitting in the lounge and not in group. IOP intake was scheduled for 11:30 AM. Nursing staff reports that the patient denied suicidal ideation when asked this morning. Patient seen at 10:23 AM. He was doing a word search prior to meeting with me in office. Feels all right. Has no complaints. Affect is calm and blunted. States mood is "half and half, I guess." Rates sad mood and anxiety both 0/10. Denies feeling hopeless, helpless, worthless or guilty. Reports sleep is good and appetite is all right. Reports energy is pretty good. IMPRESSION: Condition improved. Okay for discharge today to attend IOP then to return to home and family. We have had ample opportunity to observe and treat this patient on the inpatient unit, and in my opinion, he does not pose an imminent risk for self-harm or harm to others.
--- NOTE | 2017-10-18 14:54 | DISCHARGE SUMMARY REPORT-PSYCH ---
Visit Information Visit Dates/Diagnosis' Admission Date: 10/10/17 Discharge Date: 10/18/17 Reason for Admission: Suicide attempt by throwing self down stairs and by staying out in the cold for 3 hours with intent of freezing to . Psy Discharge Primary Diag: Unspecified depression Psy Discharge Secondary Diag: Z63.9 problem related to primary support group Hospital Course Significant Lab Findings: Lab ALT 49 U/L 10/09/17 2328 AST 36 U/L 10/09/17 2328 Albumin 5.1 g/dL H 10/09/17 2328 Anion Gap 20 H 10/09/17 2328 BUN 15 mg/dL 10/09/17 2328 Calcium 10.5 mg/dL H 10/09/17 2328 Carbon Dioxide 26 mmol/L 10/09/17 2328 Chloride 96 mmol/L L 10/09/17 2328 Cholesterol 192 MG/DL 10/09/17 2328 Cholesterol/HDL Ratio 3 % 10/09/17 2328 Creatinine 0.9 mg/dL 10/09/17 2328 Estimated GFR > 60 ml/min 10/09/17 2328 Glucose 108 mg/dL H 10/09/17 2328 HDL Cholesterol 75 mg/dL H 10/09/17 2328 Hemoglobin A1c 5.2 % 10/09/17 2328 LDL Cholesterol, Calc 100 mg/dL 10/09/17 2328 Potassium 4.0 mmol/L 10/09/17 2328 Sodium 142 mmol/L 10/09/17 2328 TSH 3.230 uIU/mL 10/09/17 2328 Total Protein 8.4 g/dL H 10/09/17 2328 Absolute Monocytes 0.8 /CUMM H 10/12/17 0603 Hct 43.7 % 10/12/17 0603 Hgb 14.8 G/DL 10/12/17 0603 Plt Count 315 /CUMM 10/12/17 0603 WBC 18.6 /CUMM H 10/09/17 2328 WBC 8.5 /CUMM 10/12/17 0603 EKG 10/10/17 was normal. Course Complications: None. Consultations: The patient was seen by Dr. Foster for admission H&P. Dr. Foster noted: "Assessment: # Depression with SI : agree with psychiatry plan" Allergies: Coded Allergies: NO KNOWN ALLERGIES (11/29/11) Hospital Course/TX Response: The patient was monitored on the unit for safety and mood disorder. He participated in multimodal treatments on the unit. The patient may have a component of autism spectrum disorder, possibly Asperger' s syndrome, but it is premature to make this diagnosis. The patient was not interested in psychiatric medication, so no standing medications were ordered. The patient reported chronic conflict with his family. Apparently family meeting on 10/15/17 did not go well. The patient had some reluctance about discharge on 10/17/17. The reason(s) for this was not clear, but it was suspected that he simply was not interested in returning to his home and family. Progress note from date of discharge, 10/18/17: Case and treatment plan discussed in team meeting. Staff reports that this morning, the patient was sitting in the lounge and not in group. IOP intake was scheduled for 11:30 AM. Nursing staff reports that the patient denied suicidal ideation when asked this morning. Patient seen at 10:23 AM. He was doing a word search prior to meeting with me in office. Feels all right. Has no complaints. Affect is calm and blunted. States mood is "half and half, I guess." Rates sad mood and anxiety both 0/10. Denies feeling hopeless, helpless, worthless or guilty. Reports sleep is good and appetite is all right. Reports energy is pretty good. IMPRESSION: Condition improved. Okay for discharge today to attend IOP then to return to home and family. We have had ample opportunity to observe and treat this patient on the inpatient unit, and in my opinion, he does not pose an imminent risk for self-harm or harm to others. Discharge HBIPS - Tobacco Use Treatment Offered Post DC Medications Offered: Not Applicable Post DC Tobacco Treatment Plan: Not Applicable - EtOH/Drug Use D/O Treatment Offered Post DC Medications Offered: NA-No EtOH/Drug Use D/O Post DC EtOH/SubAbuse TX Plan: NA-No EtOH/Drug Use D/O Metabolic Screening - Screen if on a Neuroleptic Medication - Metabolic screening should include: - Blood Pressure, BMI, Glucose or Hgb A1c, & a - Lipid profile from within the past 365 days. Metabolic Screening ([x]) Not Applicable, patient not on a neuroleptic. OR () Patient on a neuroleptic(s) . Enter below results for Hemoglobin A1C, and lipid panel if obtained during the last 365 days. BMI: 35.000 Blood Pressure: 147/66 Laboratory Results From [facility] EHR (If applicable): Discharge Instructions General Discharge Information Multiple Neuroleptics: ([x]) Not Applicable OR Document below three failed attempts at monotherapy, or a plan to taper to monotherapy, or augmentation of Clozapine. () Discharge Diet Regular Discharge Activity Normal DC Disposition: Returning to home and family. Referrals Ordered Referrals Provider Referral 10/18/17 For Groups: [[facility] IOP] [facility] Intensive Outpatient Program 10/18/17 11:30am [address] [place] [address] Other Inst/Recommendations Please see PCP about abnormal labs listed above. Studies Pending at Discharge None. Copies To: Intensive Outpt Psychiatry
== END 2017-10-18 11:26 | DRG 754 ==
LOC: ERH 23:06 → CP SOUTH 10-10 17:11 → ERHI 10-10 17:11 → ENTRNSPT 10-10 20:31 → EDTRNSPT 10-10 20:33 → EDTRNSPTSTS 10-10 20:33 → CMPTRNSPT 10-10 20:49 → CP SOUTH 10-10 20:49
PROVIDERS: Physician Assistant; Psychiatry & Neurology Psychiatry
DX: F32.9 Major depressive disorder, single episode, unspecified (principal); Z63.9 Problem related to primary support group, unspecified
CPT/HCPCS: 80307; 90832; 93005; 93010; G0480